=== PATIENT | female | born 1995 | race Caucasian/White ===

== ENCOUNTER 2017-03-11 16:39 | Emergency (ER) | payer BC, OTHER ==
[~2017-03-11] VITALS: Ht 162.6 cm; Wt 72.6 kg
[~2017-03-11 16:39] MED LIST: BENTYL20 M1 PO; IMODIUM 2MG. CAP2 MG PO; NOMEDS *; ZOFRAN ODT4 MG PO
[2017-03-11] MEDS ORDERED: IBUPROFEN800 MG PO (17:12)
--- NOTE | 2017-03-11 17:13 | Urgent Treatment Center Report ---
History of Present Issue Date/Time Seen by Provider 03/11/17 1701 Visit Reason Pt arrived:Walked Presenting Problem:PT C/O RIGHT ANKLE PAIN. PT DENIES INJURY Location if Accident: Onset of symptoms date/time:/ or onset unknown for:MEDICAL HX UNKNOWN Have you (or family members/close friends) recently traveled outside the [place]? N If Yes, where/when: Have you had exposure to infectious disease within the past month? TB? Other? Specify: Patient states that she has been having some pain in her right ankle when she moves it from side to side. States that she has not done anything to injure ankle. States that it has been hurting for around a week or so and not got any better. No swelling or no bruising noted. Thinks she may have just sprained it or something ALLERGIES Coded Allergies: No Known Allergies (11/04/16) Home Medications Active Scripts Dicyclomine HCl (Bentyl) 20 MG PO TIDP PRN abdominal pain #10 TAB Prov: 11/04/16 Ondansetron (Zofran 4MG Odt) 4 MG PO Q8HP PRN NAUSEA AND VOMITING #10 ODT Prov: 11/04/16 Loperamide Hcl (Loperamide) 2 MG PO Q6HP PRN DIARRHEA #10 CAP Prov: 11/04/16 History Medical History General CAD? No Angina: No [place]: No Hypertension? No Hyperlipidemia? No CHF? No DVT? No PE? No COPD? No Asthma? No Anemia? No GERD? No Gastric ulcers? No GI Bleed? No Hernia? No Thyroid Problems? No Hypothyroidism? No CVA? No Seizures? No Diabetes? No Renal Insuffiency? No UTI? No Stones? No BPH? No GB Disease: No Nephritic Syndrome? No Asplenia? No Hepatitis? No Sickle Cell Disease? No Arthritis? No Migraines? No Cataracts? No Glaucoma? No MRSA? No HIV? No TB? No Anxiety? No Depression? No Cancer? No More? Yes Additional hx: UTI, EAR INFECTIONS Immunization HX DT/Tetanus 1-4 YRS Surgical Hx Previous Surgery?Y TONSILS BRONCHOSCOPY Social History Smoking Hx Smoker: Never Smoker Tobacco: No Alcohol Alcohol: No Review of Systems All Other Systems Reviewed and Negative Comment Pain in right ankle denies injury Physical Exam Vital Signs Vital Signs Date Time Temp Pulse Resp B/P Pulse O2 O2 Flow FiO2 Ox Delivery Rate 03/11 1656 98.7 90 18 136/73 99 General Appearance normal appearance, WD/WN, no apparent distress Respiratory Status Yes: trachea midline, chest symmetrical, non tender chest. No: respiratory distress. 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 State that she has no pain unless she moves it from side to side Medical Decision Making LABS/Meds/Orders Pt receiving controlled substance in ED? No Results/Orders Orders Procedure Date/time Status [facility] [place] STABILIZE JOINT/AREA 03/11 1713 Active Progress [facility] [place] Progress Notes Date 03/11/17 Time 171 Comment Patient denies known injury so she refused xray Departure Departure Time of Disposition 1710 Disposition DC Home or Self Care(routine) Clinical Impression Primary Impression: Sprain Condition STABLE Referrals Haja Martinez MD (Family): 3 Days-Call Office if no improvement 2-3 days Patient Instructions How To Perform RICE (Rest, Ice, Compress, Elevate), Sprain Additional Instructions *RICE, Rest the extremity, Ice 15-20 minutes 3-4 times daily, Compress- wear the iglesia wrap, Elevate the extremity when at rest *Iglesia wrap is for support and help control swelling, use it except in the shower. Be sure that is not to tight but not to loose either *Elevate as discussed as much as possible to help reduce swelling and pain *Ibuprofen 800mg every 6-8 hours as needed for pain an inflammation. If need something more can take Tylenol in between doses of Ibuprofen to help Immediately follow up for new or worsening of symptoms, or no noticeable improvement over the nex 3-5 days Discharge Counseling Counseled pt/family regarding diagnosis, medications/RX, home care, follow up needs Prescriptions Current Visit Scripts Ibuprofen (Ibuprofen 800MG) 800 MG PO QIDP PRN pain #30 TAB at 1716
--- NOTE | 2017-03-11 17:13 | Urgent Treatment Center Report ---
History of Present Issue Date/Time Seen by Provider 03/11/17 1701 Visit Reason Pt arrived:Walked Presenting Problem:PT C/O RIGHT ANKLE PAIN. PT DENIES INJURY Location if Accident: Onset of symptoms date/time:/ or onset unknown for:MEDICAL HX UNKNOWN Have you (or family members/close friends) recently traveled outside the [place]? N If Yes, where/when: Have you had exposure to infectious disease within the past month? TB? Other? Specify: Patient states that she has been having some pain in her right ankle when she moves it from side to side. States that she has not done anything to injure ankle. States that it has been hurting for around a week or so and not got any better. No swelling or no bruising noted. Thinks she may have just sprained it or something ALLERGIES Coded Allergies: No Known Allergies (11/04/16) Home Medications Active Scripts Dicyclomine HCl (Bentyl) 20 MG PO TIDP PRN abdominal pain #10 TAB Prov: 11/04/16 Ondansetron (Zofran 4MG Odt) 4 MG PO Q8HP PRN NAUSEA AND VOMITING #10 ODT Prov: 11/04/16 Loperamide Hcl (Loperamide) 2 MG PO Q6HP PRN DIARRHEA #10 CAP Prov: 11/04/16 History Medical History General CAD? No Angina: No CT: No Hypertension? No Hyperlipidemia? No CHF? No DVT? No PE? No COPD? No Asthma? No Anemia? No GERD? No Gastric ulcers? No GI Bleed? No Hernia? No Thyroid Problems? No Hypothyroidism? No CVA? No Seizures? No Diabetes? No Renal Insuffiency? No UTI? No Stones? No BPH? No GB Disease: No Nephritic Syndrome? No Asplenia? No Hepatitis? No Sickle Cell Disease? No Arthritis? No Migraines? No Cataracts? No Glaucoma? No MRSA? No HIV? No TB? No Anxiety? No Depression? No Cancer? No More? Yes Additional hx: UTI, EAR INFECTIONS Immunization HX DT/Tetanus 1-4 YRS Surgical Hx Previous Surgery?Y TONSILS BRONCHOSCOPY Social History Smoking Hx Smoker: Never Smoker Tobacco: No Alcohol Alcohol: No Review of Systems All Other Systems Reviewed and Negative Comment Pain in right ankle denies injury Physical Exam Vital Signs Vital Signs Date Time Temp Pulse Resp B/P Pulse O2 O2 Flow FiO2 Ox Delivery Rate 03/11 1656 98.7 90 18 136/73 99 General Appearance normal appearance, WD/WN, no apparent distress Respiratory Status Yes: trachea midline, chest symmetrical, non tender chest. No: respiratory distress. 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 State that she has no pain unless she moves it from side to side Medical Decision Making LABS/Meds/Orders Pt receiving controlled substance in ED? No Results/Orders Orders Procedure Date/time Status [facility] STABILIZE JOINT/AREA 03/11 1713 Active Progress [facility] Progress Notes Date 03/11/17 Time 171 Comment Patient denies known injury so she refused xray Departure Departure Time of Disposition 1710 Disposition DC Home or Self Care(routine) Clinical Impression Primary Impression: Sprain Condition STABLE Referrals Haja Martinez MD (Family): 3 Days-Call Office if no improvement 2-3 days Patient Instructions How To Perform RICE (Rest, Ice, Compress, Elevate), Sprain Additional Instructions *RICE, Rest the extremity, Ice 15-20 minutes 3-4 times daily, Compress- wear the iglesia wrap, Elevate the extremity when at rest *Iglesia wrap is for support and help control swelling, use it except in the shower. Be sure that is not to tight but not to loose either *Elevate as discussed as much as possible to help reduce swelling and pain *Ibuprofen 800mg every 6-8 hours as needed for pain an inflammation. If need something more can take Tylenol in between doses of Ibuprofen to help Immediately follow up for new or worsening of symptoms, or no noticeable improvement over the nex 3-5 days Discharge Counseling Counseled pt/family regarding diagnosis, medications/RX, home care, follow up needs Prescriptions Current Visit Scripts Ibuprofen (Ibuprofen 800MG) 800 MG PO QIDP PRN pain #30 TAB at 1716
[2017-03-11 17:16] VITALS: BP 136/73
== END 2017-03-11 17:22 | disposition home or self-care (01) ==
LOC: UTC 16:39
DX: S93.401A Sprain of unspecified ligament of right ankle, initial encounter (principal)

== ENCOUNTER → 2017-07-09 | Outpatient (CLI) | payer BC, OTHER ==
[~2017-07-09] MED LIST changes: +IBUPROFEN800 MG PO
== END ==
LOC: RT 16:48
DX: R55 Syncope and collapse (principal)

== ENCOUNTER → 2017-07-14 | Outpatient (CLI) | payer BC, OTHER | LOC: RT 16:52 | DX: R55 Syncope and collapse (principal) ==

== ENCOUNTER → 2017-08-11 | Outpatient (CLI) | payer BC, OTHER ==
[2017-08-11 18:50] LABS: HEMOGLOBIN 14.7 g/dL (12.2-16.2)
[2017-08-11 18:51] LABS: LYMPH # 1.9 K/mm3 (0.7-4.5); LYMPH % 28.3 % (10-50.0)
[2017-08-11 19:07] LABS: BUN 10 mg/dL (7-18)
[2017-08-11 19:16] LABS: GFR (ESTIMATED) 91 ML/MIN (59-)
== END ==
LOC: LAB 18:17
PROVIDERS: Physician Assistant
DX: E66.9 Obesity, unspecified (principal); E55.9 Vitamin D deficiency, unspecified; Z68.30 Body mass index [BMI] 30.0-30.9, adult